=== PATIENT | female | born 1955 | race Caucasian/White ===

== ENCOUNTER 2025-02-16 13:58 | Day surgery (SDC) | payer MEDICARE ==
[~2025-02-16] VITALS: Ht 162.6 cm; Wt 117.9 kg
[~2025-02-16 13:58] MED LIST: ASCO500; CALCA500CH; CLIN300 PO; CONEST.3; CRUTCH4 USE; EZET10-20; FENO160; FERROCITE324 MG PO; FERROUS GLUCON324 M2 PO; FISH1000; Glycopyrrolate 0.2 MG/ML 5ML VIAL IV ONE; HUMALOG JU100 UNIT/2 SC; HYDACE5 PO; LEVSOD50; LEVSOD75 PO; LIVALO2 MG PO; LOSARTAN-HCTZ1 EACH PO; METF500C PO; MOUNJARO12.5 MG/0. SC; MULVITMIND; NAPR500 PO; OMEP20ER PO; PREG75 PO; Propofol 10mg/ml 20 ml Vial (Procedural) IV ONE; Prozac20 MG PO; QUET100; TRAM50; TRESIBA FL200 UNIT/2 SC
[2025-02-16 14:47] VITALS: BP 131/58
--- NOTE | 2025-02-16 14:50 | NUR ---
History, Chart, Medications and Allergies reviewed before start of procedure. Pre-Op teaching done. Pt verbalizes understanding. Patient confirms NPO status and agrees with scheduled surgery. Patient states colon prep results LIGHT YELLOW.
--- NOTE | 2025-02-16 15:49 | NUR ---
02/16/25 1549 Ashley Lepe ENDO 1 @ 1538- CONFIRMED AND REVIEWED H&P, MEDCICATIONS, ALLERGIES, MEDICAL HISTORY, RESPIRATORY HISTORY, VITAL SIGNS, 3-LEAD EKG, CONSENTS, AND PHYSICIAN ORDERS. PATIENT CONFIRMS NPO STATUS AND AGREES WITH SCHEDULED PROCEDURE. MONITOR INTACT WITH CONTINUOUS PULSE OXIMETRY, CAPNOGRAPHY, 3-LEAD EKG, INTERMITTENT BP. SUPPLEMENTAL O2 TO BE TITRATED THROUGHOUT PROCEDURE TO MAINTAIN O2 SATURATION ABOVE 90%. PATIENT DETERMINED TO BE ASA APPROPRIATE FOR MAC. DR. MCKENNA PROVIDING ANESTHESIA. SEE ANESTHESIA RECORD.
[2025-02-16 16:41] VITALS: BP 94/73
--- NOTE | 2025-02-16 17:12 | NUR ---
02/16/25 1712 Favian Alberto PT DOING WELL NO N/V DISCHARGE INSTRUCTIONS GIVEN PT VEBALIZED UNDERSTANDING. PT D/C TO HOME VIA CAR ()
== END 2025-02-16 23:00 | disposition home or self-care (01) ==
LOC: ORSCMMR 13:58 → ORD 15:30 → ORSCMMR 23:00
PROVIDERS: Family Medicine
PROC: 0DJD8ZZ Inspection of Lower Intestinal Tract, Via Natural or Artificial Opening Endoscopic (ICD-10-PCS; principal; 2025-02-16 15:30)
DX: Z12.11 Encounter for screening for malignant neoplasm of colon (principal); R19.5 Other fecal abnormalities; K57.30 Diverticulosis of large intestine without perforation or abscess without bleeding; I10 Essential (primary) hypertension; G47.33 Obstructive sleep apnea (adult) (pediatric); K21.9 Gastro-esophageal reflux disease without esophagitis; E11.42 Type 2 diabetes mellitus with diabetic polyneuropathy; Z79.84 Long term (current) use of oral hypoglycemic drugs; Z79.4 Long term (current) use of insulin; Z79.899 Other long term (current) drug therapy; E03.9 Hypothyroidism, unspecified; E78.5 Hyperlipidemia, unspecified; E66.01 Morbid (severe) obesity due to excess calories; Z68.41 Body mass index [BMI] 40.0-44.9, adult
CPT/HCPCS: 82947; J2704; J7120